=== PATIENT | female | born 1990 ===

== ENCOUNTER → 2018-12-15 | Outpatient (CLI) | payer OTHER ==
--- NOTE | 2018-12-15 16:59 | KCIC ---
Right breast ultrasound: Reason for examination: Right breast lump. Lactating. Ultrasound examination was performed in the area of clinical concern and at the axilla. In the 2:00 position 6 cm from the nipple and corresponding to the area of clinical concern, there is a complex nodule measuring 2.4 x 1.7 cm in greatest dimension without significant vascular flow. The appearance suggests a lactating fibroadenoma or floor these tumor. Further evaluation with ultrasound-guided biopsy should be considered. No other cystic or solid nodules are seen in the right breast. In the axilla, there is a superficial lesion measuring 1.4 cm in greatest dimension which may represent a reactive lymph node or possibly a sebaceous cyst consistent in the superficial position. No other abnormal appearing lymph nodes are seen. IMPRESSION: 2.4 cm complex lesion at the 2:00 position corresponding to the area of clinical concern. 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 Further evaluation with ultrasound biopsy should be considered. BI-RADS Category 4: Suspicious. These findings have been discussed with the patient and the patient's physician will be notified about these findings when their office reopens in the morning. "Our facility is accredited by the [employer] Mammography [employer]." This patient's information has been entered into a reminder system for the patient to be notified with the results of her examination and a target date for the next mammogram. Electronically signed by: Alicia Arenas MD (12/15/2018 4:56 PM) [id number]
== END | disposition home or self-care (01) ==
LOC: KCIC US 13:26
PROVIDERS: ATTEND Obstetrics & Gynecology
DX: N63.12 Unspecified lump in the right breast, upper inner quadrant (principal); N64.89 Other specified disorders of breast
CPT/HCPCS: 76641